=== PATIENT | male | born 1970 | race African-American/Black ===

== ENCOUNTER 2018-08-23 09:50 | Inpatient (IN) | payer MEDICAID ==
[~2018-08-23] VITALS: Ht 177.8 cm; Wt 134.4 kg
[2018-08-23 11:18] LABS: CHLORIDE 106 mEq/L (98-107)
[2018-08-23 11:30] LABS: BASOPHILS % 0.4 % (0.0-2.0); EOSINOPHILS % 0.4 % (0.0-5.0); HEMATOCRIT. 35.8 % (42.0-52.0); HEMOGLOBIN. 12.1 g/dL (14.0-18.0); LYMPHOCYTES % 26.5 % (20.0-50.0); MEAN CORPUSCULAR VOLUME 97.5 fL (80.0-94.0); MEAN PLATELET VOLUME 10.6 fl (7.4-10.4); MONOCYTES % 5.3 % (2.0-8.0); NEUTROPHILS % 67.4 % (40.0-76.0); PLATELET 206 x1000/uL (130-400); RED BLOOD CELL COUNT 3.67 mill/uL (4.7-6.1); RED CELL DISTRIBUTION WIDTH 15.4 % (11.6-14.6)
[2018-08-23 13:23] LABS: CLARITY URINE CLEAR (CLEAR); COLOR URINE YELLOW (YELLOW); KETONES URINE NEGATIVE (NEGATIVE); LEUKOCYTE ESTERASE URINE NEGATIVE (NEGATIVE); NITRITE URINE NEGATIVE (NEGATIVE); OCCULT BLOOD URINE NEGATIVE (NEGATIVE); PROTEIN URINE NEGATIVE (NEGATIVE); SPECIFIC GRAVITY URINE 1.012 (1.005-1.030); UROBILINOGEN URINE 0.2 E.U./dL (0.2-1.0)
[2018-08-23 13:48] LABS: *AMPHETAMINES SCREEN URINE NEGATIVE (NEGATIVE); *BARBITURATES SCREEN URINE NEGATIVE (NEGATIVE)
[2018-08-23 13:49] LABS: *BENZODIAZEPINES SCREEN URINE NEGATIVE (NEGATIVE); *COCAINE SCREEN URINE NEGATIVE (NEGATIVE); CANNABINOID URINE SCREEN PRESUMTIVE POSITIVE (NEGATIVE); METHADONE URINE SCREEN NEGATIVE (NEGATIVE); OPIATES URINE SCREEN NEGATIVE (NEGATIVE); PHENCYCLIDINE URINE SCREEN NEGATIVE (NEGATIVE)
[2018-08-23] MEDS ORDERED: ACETAMINOPHEN 325MG TABLET PO PRN (17:30)
[2018-08-23] MEDS ORDERED: ONDANSETRON HCL 4MG/2ML INJ IV PRN (17:30)
[2018-08-23] MEDS ORDERED: AMLO10TA80 MT (17:33)
[2018-08-23] MEDS ORDERED: LOSA100T14 MT (17:33)
[2018-08-23] MEDS ORDERED: METO1TAB40 PO (17:33)
[2018-08-23 23:20] VITALS: BP 163/102
[2018-08-23] MEDS ORDERED: ASPI-1158 PO (23:20)
[2018-08-23] MEDS ORDERED: METO-385 PO (23:20)
[2018-08-23] MEDS ORDERED: OXYC-515 MT (23:20)
[2018-08-23] MEDS ORDERED: TRIA1TAB94 PO (23:20)
[2018-08-23] MEDS ORDERED: COLC0.6C3 PO (23:20)
[2018-08-23] MEDS ORDERED: INFLUENZA VIRUS VACCINE(AFLURIA) 0.5ML SYR IM ONE (23:45)
[2018-08-23] MEDS ORDERED: PNEUMOCOCCAL 23-VAL P-SAC VAC 0.5 ML IM ONE (23:45)
[2018-08-24] VITALS: BP 163/102
[2018-08-24] MEDS: METOPROLOL TARTRATE 25MG TABLET PO SCH ×3 (00:01→21:08)
[2018-08-24] MEDS ORDERED: MEDICATION NOT ON FORMULARY EA (Oxycodone Hcl/Acetaminophen (Oxycodone-Acetaminophen 10- MT PRN (01:30)
[2018-08-24] MEDS ORDERED: OXYCODONE HCL/ACETAMINOPHEN 5/325MG TABLET PO PRN (02:00)
[2018-08-24 04:00] VITALS: BP 148/91
[2018-08-24] MEDS: LEVOTHYROXINE SODIUM 50MCG TABLET PO SCH (06:30)
[2018-08-24 07:00] LABS: BASOPHILS % 0.2 % (0.0-2.0); EOSINOPHILS % 0.5 % (0.0-5.0); HEMATOCRIT. 33.7 % (42.0-52.0); HEMOGLOBIN. 11.4 g/dL (14.0-18.0); LYMPHOCYTES % 34.5 % (20.0-50.0); MEAN CORPUSCULAR HEMOGLOBIN 32.5 pg (28.0-32.0); MEAN CORPUSCULAR VOLUME 95.9 fL (80.0-94.0); MEAN PLATELET VOLUME 10.6 fl (7.4-10.4); MONOCYTES % 6.5 % (2.0-8.0); NEUTROPHILS % 58.3 % (40.0-76.0); PLATELET 181 x1000/uL (130-400); RED BLOOD CELL COUNT 3.51 mill/uL (4.7-6.1); RED CELL DISTRIBUTION WIDTH 15.3 % (11.6-14.6)
[2018-08-24 07:39] LABS: CHLORIDE 108 mEq/L (98-107)
[2018-08-24 08:15] VITALS: BP 137/87
[2018-08-24] MEDS ORDERED: CARVEDILOL 3.125 MG TABLET PO SCH (09:00)
[2018-08-24] MEDS ORDERED: MEDICATION NOT ON FORMULARY EA (Aspirin (Aspirin Ec) 1 TAB) PO SCH (09:00)
[2018-08-24] MEDS ORDERED: MEDICATION NOT ON FORMULARY EA (Colchicine 0.6 MG) PO SCH (09:00)
[2018-08-24] MEDS: ASPIRIN 81MG TABLET PO SCH (09:07)
[2018-08-24] MEDS: AMLODIPINE 10MG TABLET PO SCH (09:08)
[2018-08-24] MEDS: LOSARTAN POTASSIUM 100 MG TABLET PO SCH (09:08)
[2018-08-24] MEDS ORDERED: DIATR MEGLU/DIATRIZOATE SOLN 30ML PO SCH (11:15)
[2018-08-24 12:00] VITALS: BP 135/96
[2018-08-24 16:00] VITALS: BP 122/95
[2018-08-24 20:00] VITALS: BP 149/97
[2018-08-24] MEDS: ENOXAPARIN 40MG/0.4ML SYR SUBCUT SCH (21:09)
[2018-08-24] MEDS ORDERED: ENOXAPARIN 30MG/0.3ML SYR SUBCUT SCH (23:00)
[2018-08-25] VITALS: BP 139/97
[2018-08-25 04:00] VITALS: BP 130/89
[2018-08-25] MEDS: LEVOTHYROXINE SODIUM 50MCG TABLET PO SCH (06:17)
[2018-08-25 06:57] LABS: BASOPHILS % 0.3 % (0.0-2.0); EOSINOPHILS % 0.3 % (0.0-5.0); HEMATOCRIT. 35.1 % (42.0-52.0); HEMOGLOBIN. 11.9 g/dL (14.0-18.0); LYMPHOCYTES % 30.8 % (20.0-50.0); MEAN CORPUSCULAR HEMOGLOBIN 32.6 pg (28.0-32.0); MEAN CORPUSCULAR VOLUME 96.4 fL (80.0-94.0); MEAN PLATELET VOLUME 10.8 fl (7.4-10.4); MONOCYTES % 6.3 % (2.0-8.0); NEUTROPHILS % 62.3 % (40.0-76.0); PLATELET 178 x1000/uL (130-400); RED BLOOD CELL COUNT 3.64 mill/uL (4.7-6.1)
[2018-08-25 07:11] LABS: CHLORIDE 107 mEq/L (98-107)
[2018-08-25 08:00] VITALS: BP 132/88
[2018-08-25] MEDS ORDERED: REGADENOSON 0.4 MG/5 ML IV ONE (09:24)
[2018-08-25 12:00] VITALS: BP 146/90
[2018-08-25] MEDS: AMLODIPINE 10MG TABLET PO SCH (14:02)
[2018-08-25] MEDS: ASPIRIN 81MG TABLET PO SCH (14:02)
[2018-08-25] MEDS: LOSARTAN POTASSIUM 100 MG TABLET PO SCH (14:02)
[2018-08-25] MEDS: ENOXAPARIN 40MG/0.4ML SYR SUBCUT SCH (14:02)
[2018-08-25] MEDS: METOPROLOL TARTRATE 25MG TABLET PO SCH (14:02)
[2018-08-25] MEDS ORDERED: REGADENOSON 0.4 MG/5 ML IV NR (15:15)
[2018-08-25 16:00] VITALS: BP 133/99
[2018-08-25 16:36] VITALS: BP 133/99
== END 2018-08-25 19:40 | disposition home or self-care (01) | DRG 203 ==
LOC: ER 09:50 → 5WST 11:36 → EDBEDREQ 11:42 → ENRESERV 20:37
PROVIDERS: ADMIT Internal Medicine; ATTEND Internal Medicine
DX: M94.0 Chondrocostal junction syndrome [Tietze] (principal); J96.00 Acute respiratory failure, unspecified whether with hypoxia or hypercapnia; N17.0 Acute kidney failure with tubular necrosis; E11.22 Type 2 diabetes mellitus with diabetic chronic kidney disease; Z68.41 Body mass index [BMI] 40.0-44.9, adult; E03.9 Hypothyroidism, unspecified; E66.9 Obesity, unspecified; E78.5 Hyperlipidemia, unspecified; I12.9 Hypertensive chronic kidney disease with stage 1 through stage 4 chronic kidney disease, or unspecified chronic kidney disease; I48.0 Paroxysmal atrial fibrillation; N18.2 Chronic kidney disease, stage 2 (mild); D64.9 Anemia, unspecified; E78.00 Pure hypercholesterolemia, unspecified; F12.90 Cannabis use, unspecified, uncomplicated; I25.10 Atherosclerotic heart disease of native coronary artery without angina pectoris; I25.2 Old myocardial infarction; Z93.3 Colostomy status; Z23 Encounter for immunization
CPT/HCPCS: 36415; 71045; 74176; 78452; 80048; 80061; 80305; 83880; 84443; 84484; 90686; 90732; 93005; 93017; 93306; 93970; 96374; 99285; A9500; J1650; J2785; Q9963